=== PATIENT | female | born 1995 | race Caucasian/White ===

== ENCOUNTER 2017-01-21 16:38 | Emergency (ER) | payer OTHER ==
[~2017-01-21] VITALS: Ht 172.7 cm; Wt 65.8 kg
== END 2017-01-21 17:17 | disposition short-term general hospital (02) ==
LOC: ER 16:38
DX: R21 Rash and other nonspecific skin eruption (principal); R10.13 Epigastric pain; N39.0 Urinary tract infection, site not specified; T37.0X5A Adverse effect of sulfonamides, initial encounter